=== PATIENT | female | born 1950 | race Caucasian/White ===

== ENCOUNTER 2022-07-09 16:54 | Inpatient (IN) | payer MEDICARE ==
[2022-07-09] MEDS ORDERED: Calcium Carbonate 500 MG ChewTAB PO PRN (20:14)
[2022-07-09] MEDS ORDERED: Acetaminophen 325 MG TAB PO PRN (20:14)
[2022-07-09] MEDS ORDERED: Simethicone Chewable 80 MG TAB PO PRN (20:21)
[2022-07-09] MEDS ORDERED: traZODone HCl 50 MG TAB PO PRN (20:21)
[2022-07-09] MEDS: Apixaban 5 MG TAB PO SCH (21:02)
[2022-07-09] MEDS: Famotidine 20 MG TAB PO SCH (21:02)
[2022-07-09] MEDS: Loratadine 10 MG TAB PO PRN (21:02)
[2022-07-09] MEDS: Melatonin 3 MG TAB PO SCH (21:02)
[2022-07-10 05:57] LABS: #Eosinphils 0.1 thou/uL (0.0-0.7); #Monocytes 0.5 thou/uL (0.11-0.59); #Neutrophils 2.2 thou/uL (1.40-6.50); %Basophils 0.8 % (0.0-1.0); %Eosinophils 2.7 % (0.0-10.0); %Lymphocytes 26.8 % (21.0-51.0); %Monocytes 12.8 % (0.0-10.0); %Neutrophils 56.9 % (42.0-75.0); ALT (SGPT) 27 U/L (8-55); AST (SGOT) 20 U/L (5-34); Albumin 3.2 g/dL (3.4-4.8); Alkaline Phosphatase 63 U/L (40-110); Anion Gap 15 mmol/L (10-20); BUN (Urea Nitrogen) 19 mg/dL (9.8-20.1); Bilirubin, Total 0.6 mg/dL (0.2-1.2); Calc. Creatinine Clearance 117 mL/min (70-130); Calcium 8.6 mg/dL (7.8-10.44); Carbon Dioxide 27 mmol/L (23-31); Chloride 104 mmol/L (98-107); Estimated GFR 89; Globulin 2.3 g/dL (2.4-3.5); Glucose 96 mg/dL (83-110); Hemoglobin 12.3 g/dL (12.0-16.0); Magnesium 1.8 mg/dL (1.6-2.6); Mean Corpuscular HGB CONC 28.9 g/dL (32.0-36.0); Mean Corpuscular Hemoglobin 26.1 pg (27.0-31.0); Mean Corpuscular Volume 90.4 fL (78.0-98.0); Mean Platelet Volume 11.2 fL (7.4-10.4); Platelet Count 142 thou/uL (130-400); Potassium 3.2 mmol/L (3.5-5.1); Protein, Total 5.5 g/dL (5.8-8.1); RBC Distribution Width 14.2 % (11.5-14.5); Red Blood Cell (RBC) Count 4.72 mill/uL (4.20-5.40); Sodium 143 mmol/L (136-145); White Blood Cell (WBC) Count 3.8 thou/uL (4.8-10.8)
[2022-07-10] MEDS: Losartan 25 MG TAB PO SCH (08:44)
[2022-07-10] MEDS: Dronedarone HCl 400 MG TAB PO SCH ×2 (08:45→17:07)
[2022-07-10] MEDS: Potassium Chloride 10 MEQ TAB PO SCH (08:45)
[2022-07-10] MEDS: Famotidine 20 MG TAB PO SCH ×2 (08:45→20:30)
[2022-07-10] MEDS: Carvedilol 25 MG TAB PO SCH ×2 (08:45→17:07)
[2022-07-10] MEDS: Apixaban 5 MG TAB PO SCH ×2 (08:45→20:30)
[2022-07-10] MEDS: Furosemide 40 MG TAB PO SCH (08:46)
[2022-07-10] MEDS ORDERED: Fosfomycin 3 GM/Packet PO SCH (09:00)
[2022-07-10] MEDS ORDERED: Potassium Chloride 20 MEQ TAB PO SCH (09:00)
[2022-07-10 17:52] LABS: SARS-CoV-2 NAA Rapid Test Not Detected (NotDetected)
[2022-07-10] MEDS: Melatonin 3 MG TAB PO SCH (20:31)
[2022-07-10] MEDS: Loratadine 10 MG TAB PO PRN (20:32)
[2022-07-11 05:40] LABS: Phosphorus 3.4 mg/dL (2.3-4.7)
[2022-07-11 05:41] LABS: Anion Gap 15 mmol/L (10-20); BUN (Urea Nitrogen) 19 mg/dL (9.8-20.1); Calc. Creatinine Clearance 103 mL/min (70-130); Calcium 8.5 mg/dL (7.8-10.44); Carbon Dioxide 28 mmol/L (23-31); Chloride 103 mmol/L (98-107); Estimated GFR 79; Glucose 95 mg/dL (83-110); Magnesium 1.6 mg/dL (1.6-2.6); Potassium 3.4 mmol/L (3.5-5.1); Sodium 143 mmol/L (136-145)
[2022-07-11] MEDS: Furosemide 40 MG TAB PO SCH (08:11)
[2022-07-11] MEDS: Apixaban 5 MG TAB PO SCH ×2 (08:11→20:56)
[2022-07-11] MEDS: Famotidine 20 MG TAB PO SCH ×2 (08:11→20:56)
[2022-07-11] MEDS: Losartan 25 MG TAB PO SCH (08:12)
[2022-07-11] MEDS: Dronedarone HCl 400 MG TAB PO SCH ×2 (08:12→17:28)
[2022-07-11] MEDS: Carvedilol 25 MG TAB PO SCH ×2 (08:12→17:27)
[2022-07-11] MEDS: Potassium Chloride 10 MEQ TAB PO SCH (08:12)
[2022-07-11] MEDS ORDERED: FLU VACC QS2022-23(65YR UP)/PF 240 MCG/0.7 ML SYRINGE IM ONE (09:00)
[2022-07-11] MEDS ORDERED: Potassium Chloride 20 MEQ TAB PO SCH (14:15)
[2022-07-11] MEDS ORDERED: Magnesium 2 GM/50 ML(in water) 2 GM in Premix Bag 1 BAG IVPB SCH (14:15)
[2022-07-11] MEDS: Melatonin 3 MG TAB PO SCH (20:56)
[2022-07-11] MEDS: Loratadine 10 MG TAB PO PRN (20:58)
[2022-07-12 05:59] LABS: Anion Gap 15 mmol/L (10-20); BUN (Urea Nitrogen) 23 mg/dL (9.8-20.1); Calc. Creatinine Clearance 104 mL/min (70-130); Calcium 8.8 mg/dL (7.8-10.44); Carbon Dioxide 29 mmol/L (23-31); Chloride 102 mmol/L (98-107); Estimated GFR 81; Glucose 96 mg/dL (83-110); Phosphorus 3.4 mg/dL (2.3-4.7); Potassium 3.8 mmol/L (3.5-5.1); Sodium 142 mmol/L (136-145)
[2022-07-12] MEDS: Potassium Chloride 10 MEQ TAB PO SCH (07:47)
[2022-07-12] MEDS: Carvedilol 25 MG TAB PO SCH ×2 (07:47→17:04)
[2022-07-12] MEDS: Dronedarone HCl 400 MG TAB PO SCH ×2 (07:47→17:04)
[2022-07-12] MEDS: Furosemide 40 MG TAB PO SCH (07:47)
[2022-07-12] MEDS: Losartan 25 MG TAB PO SCH (08:38)
[2022-07-12] MEDS: Apixaban 5 MG TAB PO SCH ×2 (08:38→20:01)
[2022-07-12] MEDS: Famotidine 20 MG TAB PO SCH ×2 (08:39→20:01)
[2022-07-12] MEDS: Melatonin 3 MG TAB PO SCH (20:01)
[2022-07-12] MEDS: Loratadine 10 MG TAB PO PRN (20:02)
[2022-07-13] MEDS: Dronedarone HCl 400 MG TAB PO SCH ×2 (08:09→17:19)
[2022-07-13] MEDS: Famotidine 20 MG TAB PO SCH ×2 (08:09→21:09)
[2022-07-13] MEDS: Apixaban 5 MG TAB PO SCH ×2 (08:09→21:08)
[2022-07-13] MEDS: Losartan 25 MG TAB PO SCH (08:09)
[2022-07-13] MEDS: Potassium Chloride 10 MEQ TAB PO SCH (08:10)
[2022-07-13] MEDS: Carvedilol 25 MG TAB PO SCH ×2 (08:10→17:19)
[2022-07-13] MEDS: Furosemide 40 MG TAB PO SCH (08:10)
[2022-07-13 10:49] LABS: #Basophils 0.1 thou/uL (0.0-0.2); #Eosinphils 0.1 thou/uL (0.0-0.7); #Lymphocytes 1.2 thou/uL (1.20-3.40); #Monocytes 0.5 thou/uL (0.11-0.59); #Neutrophils 2.7 thou/uL (1.40-6.50); %Basophils 1.3 % (0.0-1.0); %Eosinophils 3.2 % (0.0-10.0); %Lymphocytes 25.8 % (21.0-51.0); %Monocytes 10.5 % (0.0-10.0); %Neutrophils 59.3 % (42.0-75.0); Hemoglobin 14.2 g/dL (12.0-16.0); Mean Corpuscular HGB CONC 30.2 g/dL (32.0-36.0); Mean Corpuscular Hemoglobin 27.2 pg (27.0-31.0); Mean Corpuscular Volume 90.3 fL (78.0-98.0); Mean Platelet Volume 12.4 fL (7.4-10.4); Platelet Count 197 thou/uL (130-400); White Blood Cell (WBC) Count 4.5 thou/uL (4.8-10.8)
[2022-07-13 10:50] LABS: ALT (SGPT) 48 U/L (8-55); AST (SGOT) 35 U/L (5-34); Albumin 3.7 g/dL (3.4-4.8); Alkaline Phosphatase 68 U/L (40-110); Anion Gap 17 mmol/L (10-20); BUN (Urea Nitrogen) 25 mg/dL (9.8-20.1); Bilirubin, Total 0.7 mg/dL (0.2-1.2); Calc. Creatinine Clearance 88 mL/min (70-130); Calcium 9.3 mg/dL (7.8-10.44); Carbon Dioxide 26 mmol/L (23-31); Chloride 99 mmol/L (98-107); Estimated GFR 65; Globulin 2.8 g/dL (2.4-3.5); Potassium 3.9 mmol/L (3.5-5.1); Protein, Total 6.5 g/dL (5.8-8.1); Sodium 138 mmol/L (136-145)
[2022-07-13 10:59] LABS: Glucose 116 mg/dL (83-110)
[2022-07-13 12:40] LABS: CKMB 0.6 ng/mL (0-6.6)
[2022-07-13] MEDS: Melatonin 3 MG TAB PO SCH (21:08)
[2022-07-14] MEDS: Dronedarone HCl 400 MG TAB PO SCH ×2 (08:06→17:10)
[2022-07-14] MEDS: Apixaban 5 MG TAB PO SCH ×2 (08:06→20:52)
[2022-07-14] MEDS: Potassium Chloride 10 MEQ TAB PO SCH (08:06)
[2022-07-14] MEDS: Furosemide 40 MG TAB PO SCH (08:07)
[2022-07-14] MEDS: Carvedilol 25 MG TAB PO SCH ×2 (08:08→17:10)
[2022-07-14] MEDS: Losartan 25 MG TAB PO SCH (08:09)
[2022-07-14] MEDS: Famotidine 20 MG TAB PO SCH ×2 (08:09→20:53)
[2022-07-14] MEDS: Melatonin 3 MG TAB PO SCH (20:51)
[2022-07-15] MEDS: Furosemide 40 MG TAB PO SCH (08:50)
[2022-07-15] MEDS: Carvedilol 25 MG TAB PO SCH ×2 (08:50→19:13)
[2022-07-15] MEDS: Potassium Chloride 10 MEQ TAB PO SCH (08:50)
[2022-07-15] MEDS: Losartan 25 MG TAB PO SCH (08:50)
[2022-07-15] MEDS: Dronedarone HCl 400 MG TAB PO SCH ×2 (08:50→19:13)
[2022-07-15] MEDS: Apixaban 5 MG TAB PO SCH ×2 (08:50→21:36)
[2022-07-15] MEDS: Famotidine 20 MG TAB PO SCH ×2 (08:51→21:36)
[2022-07-15] MEDS: Melatonin 3 MG TAB PO SCH (21:36)
[2022-07-16] MEDS: Furosemide 40 MG TAB PO SCH (09:09)
[2022-07-16] MEDS: Losartan 25 MG TAB PO SCH (09:09)
[2022-07-16] MEDS: Potassium Chloride 10 MEQ TAB PO SCH (09:09)
[2022-07-16] MEDS: Famotidine 20 MG TAB PO SCH ×2 (09:09→21:28)
[2022-07-16] MEDS: Dronedarone HCl 400 MG TAB PO SCH ×2 (09:09→17:49)
[2022-07-16] MEDS: Apixaban 5 MG TAB PO SCH ×2 (09:09→21:28)
[2022-07-16] MEDS: Carvedilol 25 MG TAB PO SCH ×2 (09:10→17:48)
[2022-07-16] MEDS: Melatonin 3 MG TAB PO SCH (21:28)
[2022-07-16] MEDS: Loratadine 10 MG TAB PO PRN (21:32)
[2022-07-17 06:04] LABS: Anion Gap 18 mmol/L (10-20); BUN (Urea Nitrogen) 27 mg/dL (9.8-20.1); Calc. Creatinine Clearance 72 mL/min (70-130); Calcium 8.6 mg/dL (7.8-10.44); Carbon Dioxide 26 mmol/L (23-31); Chloride 98 mmol/L (98-107); Estimated GFR 55; Glucose 111 mg/dL (83-110); Potassium 3.6 mmol/L (3.5-5.1); Sodium 138 mmol/L (136-145)
[2022-07-17 06:16] LABS: Phosphorus 3.9 mg/dL (2.3-4.7)
[2022-07-17] MEDS: Apixaban 5 MG TAB PO SCH ×2 (08:47→20:40)
[2022-07-17] MEDS: Losartan 25 MG TAB PO SCH (08:47)
[2022-07-17] MEDS: Carvedilol 25 MG TAB PO SCH ×2 (08:47→17:40)
[2022-07-17] MEDS: Famotidine 20 MG TAB PO SCH ×2 (08:47→20:40)
[2022-07-17] MEDS: Potassium Chloride 10 MEQ TAB PO SCH (08:48)
[2022-07-17] MEDS: Dronedarone HCl 400 MG TAB PO SCH ×2 (08:48→17:41)
[2022-07-17] MEDS: Furosemide 40 MG TAB PO SCH (08:49)
[2022-07-17] MEDS: Loratadine 10 MG TAB PO PRN (20:39)
[2022-07-17] MEDS: Melatonin 3 MG TAB PO SCH (20:40)
[2022-07-18 05:55] LABS: ALT (SGPT) 36 U/L (8-55); AST (SGOT) 26 U/L (5-34); Albumin 3.8 g/dL (3.4-4.8); Alkaline Phosphatase 63 U/L (40-110); Anion Gap 19 mmol/L (10-20); BUN (Urea Nitrogen) 28 mg/dL (9.8-20.1); Bilirubin, Total 0.6 mg/dL (0.2-1.2); Calc. Creatinine Clearance 65 mL/min (70-130); Calcium 8.8 mg/dL (7.8-10.44); Carbon Dioxide 26 mmol/L (23-31); Chloride 98 mmol/L (98-107); Estimated GFR 48; Globulin 2.8 g/dL (2.4-3.5); Glucose 108 mg/dL (83-110); Potassium 3.6 mmol/L (3.5-5.1); Protein, Total 6.6 g/dL (5.8-8.1); Sodium 139 mmol/L (136-145)
[2022-07-18] MEDS: Furosemide 40 MG TAB PO SCH (08:03)
[2022-07-18] MEDS: Dronedarone HCl 400 MG TAB PO SCH ×2 (08:03→17:30)
[2022-07-18] MEDS: Apixaban 5 MG TAB PO SCH ×2 (08:03→20:59)
[2022-07-18] MEDS: Potassium Chloride 10 MEQ TAB PO SCH (08:03)
[2022-07-18] MEDS: Carvedilol 25 MG TAB PO SCH ×2 (08:04→17:31)
[2022-07-18] MEDS: Losartan 25 MG TAB PO SCH (08:04)
[2022-07-18] MEDS: Famotidine 20 MG TAB PO SCH ×2 (08:04→20:59)
[2022-07-18] MEDS: Melatonin 3 MG TAB PO SCH (20:59)
[2022-07-18] MEDS: Loratadine 10 MG TAB PO PRN (21:01)
[2022-07-19 06:22] LABS: Anion Gap 15 mmol/L (10-20); BUN (Urea Nitrogen) 27 mg/dL (9.8-20.1); Calc. Creatinine Clearance 70 mL/min (70-130); Calcium 8.7 mg/dL (7.8-10.44); Carbon Dioxide 26 mmol/L (23-31); Chloride 100 mmol/L (98-107); Estimated GFR 52; Glucose 107 mg/dL (83-110); Sodium 137 mmol/L (136-145)
[2022-07-19] MEDS: Carvedilol 25 MG TAB PO SCH ×2 (08:59→17:21)
[2022-07-19] MEDS: Apixaban 5 MG TAB PO SCH ×2 (09:00→20:31)
[2022-07-19] MEDS: Potassium Chloride 10 MEQ TAB PO SCH (09:00)
[2022-07-19] MEDS: Famotidine 20 MG TAB PO SCH ×2 (09:00→20:31)
[2022-07-19] MEDS: Dronedarone HCl 400 MG TAB PO SCH ×2 (09:00→17:21)
[2022-07-19] MEDS: Furosemide 40 MG TAB PO SCH (09:00)
[2022-07-19] MEDS: Losartan 25 MG TAB PO SCH (09:00)
[2022-07-19] MEDS: Melatonin 3 MG TAB PO SCH (20:31)
[2022-07-19] MEDS: Loratadine 10 MG TAB PO PRN (20:32)
[2022-07-20 06:07] LABS: Hemoglobin 13.5 g/dL (12.0-16.0); Platelet Count 151 thou/uL (130-400)
[2022-07-20] MEDS: Famotidine 20 MG TAB PO SCH ×2 (09:23→20:43)
[2022-07-20] MEDS: Apixaban 5 MG TAB PO SCH ×2 (09:24→20:43)
[2022-07-20] MEDS: Losartan 25 MG TAB PO SCH (09:24)
[2022-07-20] MEDS: Carvedilol 25 MG TAB PO SCH ×2 (09:24→17:17)
[2022-07-20] MEDS: Dronedarone HCl 400 MG TAB PO SCH ×2 (09:24→17:17)
[2022-07-20] MEDS: Potassium Chloride 10 MEQ TAB PO SCH (09:25)
[2022-07-20] MEDS: Furosemide 40 MG TAB PO SCH (09:25)
[2022-07-20] MEDS: Melatonin 3 MG TAB PO SCH (20:43)
[2022-07-20] MEDS: Loratadine 10 MG TAB PO PRN (20:43)
[2022-07-21] MEDS: Carvedilol 25 MG TAB PO SCH ×2 (08:59→17:36)
[2022-07-21] MEDS: Furosemide 40 MG TAB PO SCH (09:02)
[2022-07-21] MEDS: Losartan 25 MG TAB PO SCH (09:02)
[2022-07-21] MEDS: Potassium Chloride 10 MEQ TAB PO SCH (09:02)
[2022-07-21] MEDS: Famotidine 20 MG TAB PO SCH ×2 (09:02→20:37)
[2022-07-21] MEDS: Dronedarone HCl 400 MG TAB PO SCH ×2 (09:02→17:37)
[2022-07-21] MEDS: Apixaban 5 MG TAB PO SCH ×2 (09:03→20:37)
[2022-07-21] MEDS: Melatonin 3 MG TAB PO SCH (20:36)
[2022-07-21] MEDS: Loratadine 10 MG TAB PO PRN (20:37)
[2022-07-21] MEDS ORDERED: Melatonin 3 MG TAB PO SCH (22:45)
[2022-07-22] MEDS: Dronedarone HCl 400 MG TAB PO SCH ×2 (08:38→17:17)
[2022-07-22] MEDS: Carvedilol 25 MG TAB PO SCH ×2 (08:38→17:17)
[2022-07-22] MEDS: Furosemide 40 MG TAB PO SCH (08:39)
[2022-07-22] MEDS: Potassium Chloride 10 MEQ TAB PO SCH (08:39)
[2022-07-22] MEDS: Apixaban 5 MG TAB PO SCH ×2 (08:39→20:50)
[2022-07-22] MEDS: Losartan 25 MG TAB PO SCH (08:40)
[2022-07-22] MEDS: Famotidine 20 MG TAB PO SCH ×2 (08:40→20:50)
[2022-07-22] MEDS: Melatonin 3 MG TAB PO SCH (20:49)
[2022-07-23 05:35] VITALS: BMI 30.4
[2022-07-23] MEDS: Apixaban 5 MG TAB PO SCH (08:23)
[2022-07-23] MEDS: Carvedilol 25 MG TAB PO SCH (08:23)
[2022-07-23] MEDS: Losartan 25 MG TAB PO SCH (08:24)
[2022-07-23] MEDS: Potassium Chloride 10 MEQ TAB PO SCH (08:24)
[2022-07-23] MEDS: Dronedarone HCl 400 MG TAB PO SCH (08:24)
[2022-07-23] MEDS: Famotidine 20 MG TAB PO SCH (08:24)
[2022-07-23] MEDS: Furosemide 40 MG TAB PO SCH (08:24)
[2022-07-23 09:34] VITALS: BP 109/69; TEMP 97.8
== END 2022-07-23 12:30 | disposition home health service (06) | DRG 948 ==
LOC: NAV ACUTE 19:34
PROVIDERS: ADMIT Family Medicine; ATTEND Family Medicine
DX: R53.81 Other malaise (principal); I42.9 Cardiomyopathy, unspecified; I50.42 Chronic combined systolic (congestive) and diastolic (congestive) heart failure; N39.0 Urinary tract infection, site not specified; C85.90 Non-Hodgkin lymphoma, unspecified, unspecified site; N17.9 Acute kidney failure, unspecified; Z20.822 Contact with and (suspected) exposure to COVID-19; I48.0 Paroxysmal atrial fibrillation; E87.6 Hypokalemia; B96.20 Unspecified Escherichia coli [E. coli] as the cause of diseases classified elsewhere; K80.20 Calculus of gallbladder without cholecystitis without obstruction; N20.0 Calculus of kidney; R53.1 Weakness; E83.42 Hypomagnesemia; I11.0 Hypertensive heart disease with heart failure; Z86.711 Personal history of pulmonary embolism; Z86.718 Personal history of other venous thrombosis and embolism; Z79.01 Long term (current) use of anticoagulants; Z90.89 Acquired absence of other organs; Z82.49 Family history of ischemic heart disease and other diseases of the circulatory system; Z91.011 Allergy to milk products
CPT/HCPCS: 36415; 71045; 80048; 80053; 82553; 83735; 83880; 84100; 84484; 85014; 85018; 85025; 85049; 87811; 90471; 90662; G0008; J3475; U0002